=== PATIENT | male | born 1930 | race Caucasian/White ===

== ENCOUNTER → 2016-03-12 | Outpatient (CLI) | payer OTHER | END | disposition home or self-care (01) | LOC: PCVCCLINIC 14:25 | PROVIDERS: ATTEND Nuclear Medicine Nuclear Cardiology | DX: I73.9 Peripheral vascular disease, unspecified (principal); I25.10 Atherosclerotic heart disease of native coronary artery without angina pectoris; I77.9 Disorder of arteries and arterioles, unspecified; I10 Essential (primary) hypertension; E78.00 Pure hypercholesterolemia, unspecified; I65.23 Occlusion and stenosis of bilateral carotid arteries | CPT/HCPCS: 93880; 93926; G0463 ==

== ENCOUNTER → 2016-04-13 | Outpatient (CLI) | payer OTHER | END | disposition home or self-care (01) | LOC: PCVCCLINIC 14:20 | PROVIDERS: ATTEND Internal Medicine Cardiovascular Disease | DX: I25.10 Atherosclerotic heart disease of native coronary artery without angina pectoris (principal); I10 Essential (primary) hypertension; I73.9 Peripheral vascular disease, unspecified; I77.9 Disorder of arteries and arterioles, unspecified; E78.00 Pure hypercholesterolemia, unspecified; I48.91 Unspecified atrial fibrillation; I49.5 Sick sinus syndrome; Z95.1 Presence of aortocoronary bypass graft | CPT/HCPCS: 93005; G0463 ==

== ENCOUNTER → 2016-07-10 | Outpatient (CLI) | payer OTHER | END | disposition home or self-care (01) | LOC: PCVCIMAG 14:57 | PROVIDERS: ATTEND Internal Medicine Cardiovascular Disease | DX: I70.213 Atherosclerosis of native arteries of extremities with intermittent claudication, bilateral legs (principal); I25.10 Atherosclerotic heart disease of native coronary artery without angina pectoris; E78.00 Pure hypercholesterolemia, unspecified; I48.0 Paroxysmal atrial fibrillation; I10 Essential (primary) hypertension | CPT/HCPCS: 93005; 93925; G0463 ==

== ENCOUNTER → 2017-01-04 | Outpatient (CLI) | payer OTHER ==
--- NOTE | 2017-01-04 14:55 | PCVCIMAG ---
EXAM: BILATERAL CAROTID DUPLEX INDICATION: Carotid Occlusive Disease. FINDINGS: Doppler Measurements (centimeters per second): RIGHT: Peak CCA-60, Peak ECA-73, Diastolic ICA-22, Peak ICA-77, ICA/CCA Ratio-1.3. LEFT: Peak CCA-78, Peak ECA-255, Diastolic ICA-19, Peak ICA-88, ICA/CCA Ratio-1.1. RIGHT CAROTID: The carotid bulb has minimal plaque. The proximal internal carotid artery shows no significant stenosis. The common carotid artery shows no significant stenosis. The external carotid artery shows no significant stenosis. LEFT CAROTID: The carotid bulb has mild plaque. The proximal internal carotid artery shows <40% stenosis. The common carotid artery shows no significant stenosis. The external carotid artery shows 70% stenosis. Antegrade flow in both vertebral arteries. IMPRESSION: No significant stenosis of the right internal carotid artery with minimal plaque. <40% stenosis of the left internal carotid artery with mild plaque. LOC:[place] [id number]
--- NOTE | 2017-01-04 16:03 | PCVCIMAG ---
EXAM: BILATERAL LOWER EXTREMITY ARTERIAL DUPLEX INDICATION: Peripheral Arterial Disease. Leg pain. FINDINGS: Right Leg: Satisfactory arterial waveforms in the common femoral and profunda femoral artery. Mild stenosis mid cheesh-na superficial femoral artery. No flow-limiting stenosis in the superficial femoral artery popliteal artery. Previous popliteal arteries stent maintaining adequate patency. Occlusion mid/distal anterior tibial artery. The peroneal and posterior tibial arteries are patent. Left Leg: The common femoral and profunda femoral arteries are patent. [place] superficial femoral artery and upper popliteal artery show chronic occlusion. Postsurgical changes of femoral to popliteal artery bypass graft remains patent. The anterior tibial, peroneal, and posterior tibial arteries are patent. IMPRESSION: Previous right popliteal artery stent is patent. Occlusion of the mid/distal right anterior tibial artery. Occlusion of the cheesh-na left superficial femoral artery and popliteal artery. The left femoral-popliteal artery bypass graft showing good patency. LOC:[id number]
== END | disposition home or self-care (01) ==
LOC: PCVCIMAG 13:24
PROVIDERS: ATTEND Nuclear Medicine Nuclear Cardiology
DX: I73.9 Peripheral vascular disease, unspecified (principal); I65.23 Occlusion and stenosis of bilateral carotid arteries; I77.9 Disorder of arteries and arterioles, unspecified; I25.10 Atherosclerotic heart disease of native coronary artery without angina pectoris; I10 Essential (primary) hypertension; I48.91 Unspecified atrial fibrillation; E78.00 Pure hypercholesterolemia, unspecified; R09.89 Other specified symptoms and signs involving the circulatory and respiratory systems; M79.605 Pain in left leg; M79.604 Pain in right leg; Z95.1 Presence of aortocoronary bypass graft; Z87.891 Personal history of nicotine dependence
CPT/HCPCS: 80061; 93005; 93880; 93925; G0463

== ENCOUNTER → 2017-02-19 | Outpatient (CLI) | payer OTHER | END | disposition home or self-care (01) | LOC: PCVCCLINIC 13:30 | DX: I25.10 Atherosclerotic heart disease of native coronary artery without angina pectoris (principal); D64.9 Anemia, unspecified; I49.5 Sick sinus syndrome; I73.9 Peripheral vascular disease, unspecified; I10 Essential (primary) hypertension; E78.00 Pure hypercholesterolemia, unspecified; I77.9 Disorder of arteries and arterioles, unspecified; R60.0 Localized edema; R00.0 Tachycardia, unspecified; R94.31 Abnormal electrocardiogram [ECG] [EKG]; Z95.0 Presence of cardiac pacemaker; Z87.891 Personal history of nicotine dependence; Z79.899 Other long term (current) drug therapy | CPT/HCPCS: 80061; 93005; G0463 ==

== ENCOUNTER → 2017-03-19 | Outpatient (CLI) | payer OTHER | END | disposition home or self-care (01) | LOC: PCVCCLINIC 10:51 | DX: I25.10 Atherosclerotic heart disease of native coronary artery without angina pectoris (principal); I10 Essential (primary) hypertension; I48.91 Unspecified atrial fibrillation; I49.5 Sick sinus syndrome; E78.00 Pure hypercholesterolemia, unspecified; I73.9 Peripheral vascular disease, unspecified; I77.9 Disorder of arteries and arterioles, unspecified; R94.31 Abnormal electrocardiogram [ECG] [EKG]; Z95.1 Presence of aortocoronary bypass graft; Z95.0 Presence of cardiac pacemaker; Z87.891 Personal history of nicotine dependence; Z79.899 Other long term (current) drug therapy | CPT/HCPCS: 93005; G0463 ==

== ENCOUNTER → 2017-06-02 | Outpatient (CLI) | payer OTHER | END | disposition home or self-care (01) | LOC: PCVCCLINIC 11:09 | DX: I49.5 Sick sinus syndrome (principal); I73.9 Peripheral vascular disease, unspecified; I10 Essential (primary) hypertension; E78.00 Pure hypercholesterolemia, unspecified; I77.9 Disorder of arteries and arterioles, unspecified; I25.10 Atherosclerotic heart disease of native coronary artery without angina pectoris; I48.91 Unspecified atrial fibrillation; D64.9 Anemia, unspecified; Z95.1 Presence of aortocoronary bypass graft; Z95.0 Presence of cardiac pacemaker; Z87.891 Personal history of nicotine dependence; Z79.899 Other long term (current) drug therapy | CPT/HCPCS: 80061; 93005; 93279; G0463 ==

== ENCOUNTER → 2017-10-18 | Outpatient (CLI) | payer OTHER ==
--- NOTE | 2017-10-18 14:06 | PCVCIMAG ---
EXAM: BILATERAL LOWER EXTREMITY ARTERIAL DUPLEX INDICATION: Peripheral Arterial Disease. Leg pain. FINDINGS: Right Leg: Common femoral and profunda femoral arteries are patent. Superficial femoral and popliteal arteries are patent. Previous proximal artery stent is patent. The peroneal artery and posterior tibial artery are patent. Occlusion of the mid and distal anterior tibial artery. Left Leg: Common femoral and profunda femoral arteries are patent. Occlusion throughout the [place] superficial femoral artery. Postsurgical changes of femoral-popliteal artery bypass graft remain patent. The anterior tibial, peroneal, and posterior tibial arteries are patent. IMPRESSION: Occlusion of the mid/distal right anterior tibial artery. Otherwise flow limiting stenosis in the right lower extremity. Previous right popliteal artery stent maintaining satisfactory patency. Previous left femoral-popliteal artery bypass graft remains patent. LOC:[id number]
== END | disposition home or self-care (01) ==
LOC: PCVCIMAG 13:55
PROVIDERS: ATTEND Nuclear Medicine Nuclear Cardiology
DX: I70.201 Unspecified atherosclerosis of native arteries of extremities, right leg (principal)
CPT/HCPCS: 93925

== ENCOUNTER → 2018-06-29 | Outpatient (CLI) | payer BC ==
--- NOTE | 2018-06-29 09:13 | PCVCIMAG ---
APPROVED REPORT Laterality: Bilateral Indications Stenosis Surgery/Intervention Endarterectomy: right left Doppler Spectral Velocity Analysis PSV / EDVPSV / EDV ECA (R) 96 / 6 cm/sECA (L) 142 / 14 cm/s dICA (R) 52 / 17 cm/sdICA (L) 76 / 19 cm/s Delvin (R) 52 / 16 cm/smICA (L) 71 / 21 cm/s pICA (R) 27 / 8 cm/spICA (L) 54 / 13 cm/s Bulb (R) 31 / 6 cm/sBulb (L) 36 / 10 cm/s dCCA (R) 51 / 10 cm/sdCCA (L) 59 / 13 cm/s mCCA (R) 49 / 10 cm/smCCA (L) 56 / 14 cm/s Vert (R) 55 / 0 cm/sVert (L) 83 / 26 cm/s ICA/CCA 1.02ICA/CCA 1.29 Findings The right carotid bulb has minimal plaque. The right proximal internal carotid artery shows no significant stenosis. The right common carotid artery shows no significant stenosis. The right external carotid artery shows no significant stenosis. The left carotid bulb has mild calcified plaque. The left proximal internal carotid artery shows <40% stenosis. The left common carotid artery shows no significant stenosis. The left external carotid artery shows <50% stenosis. Conclusion 1. Right internal carotid artery plaquing; prior carotid endarterectomy without significant stenosis 2. Left internal carotid artery plaquing (<40% stenosis); prior carotid endarterectomy 3. Antegrade vertebral flow
--- NOTE | 2018-06-29 12:22 | PCVCIMAG ---
EXAM: BILATERAL LOWER EXTREMITY ARTERIAL DUPLEX INDICATION: Peripheral Arterial Disease. Leg pain. FINDINGS: Right Leg: Common femoral and profunda femoral arteries are patent. Adequate patency throughout the superficial femoral artery and popliteal artery. Previous popliteal artery stent maintaining good patency. Occlusion of the mid anterior tibial artery. The peroneal and posterior tibial arteries are patent. Left Leg: Common femoral and profunda femoral arteries are patent. Occlusion of the [place] superficial femoral artery and upper popliteal artery. Postsurgical changes of [id number]-sasc popliteal artery bypass graft maintaining satisfactory patency. Mid and distal popliteal artery is patent. Peroneal artery and posterior tibial arteries are patent. 70% stenosis mid anterior tibial artery. IMPRESSION: Segmental occlusion mid right anterior tibial artery. Otherwise no flow limiting stenosis in the right lower extremity. Previous right popliteal artery stent maintaining satisfactory patency. Left femoral-popliteal artery bypass graft maintaining satisfactory patency. 70% stenosis mid left anterior tibial artery. LOC:[place] [id number]
== END | disposition home or self-care (01) ==
LOC: PCVCIMAG 08:00
PROVIDERS: ATTEND Nuclear Medicine Nuclear Cardiology
DX: I65.23 Occlusion and stenosis of bilateral carotid arteries (principal); E78.00 Pure hypercholesterolemia, unspecified; I73.9 Peripheral vascular disease, unspecified
CPT/HCPCS: 93880; 93925